=== PATIENT | male | born 1945 | race African-American/Black ===

== ENCOUNTER 2019-03-21 15:59 | Inpatient (IN) | payer MEDICARE, MEDICAID ==
[~2019-03-21] VITALS: Ht 165.1 cm; Wt 66.7 kg
[2019-03-21 18:47] LABS: BASOPHILS % 0.8 % (0.0-2.0); EOSINOPHILS % 2.4 % (0.0-5.0); HEMATOCRIT. 33.6 % (42.0-52.0); HEMOGLOBIN. 11.3 g/dL (14.0-18.0); LYMPHOCYTES % 24.5 % (20.0-50.0); MEAN CORPUSCULAR HEMOGLOBIN 29.3 pg (28.0-32.0); MEAN PLATELET VOLUME 10.2 fl (7.4-10.4); MONOCYTES % 5.8 % (2.0-8.0); NEUTROPHILS % 66.5 % (40.0-76.0); PLATELET 217 x1000/uL (130-400); RED BLOOD CELL COUNT 3.86 mill/uL (4.7-6.1)
[2019-03-21 18:52] LABS: CHLORIDE 112 mEq/L (98-107)
[2019-03-21] MEDS ORDERED: IOHEXOL-300 100 ML BOTTLE ONE (21:26)
[2019-03-22] VITALS (7 sets, daily range): BP systolic 112–168; BP diastolic 67–92
[2019-03-22] MEDS ORDERED: HYDROCODONE/ACETAMINOPHEN 5/325MG TABLET PO PRN (01:15)
[2019-03-22] MEDS ORDERED: DEXTROSE 50% WATER 50ML SYRINGE IV PRN (01:15)
[2019-03-22] MEDS ORDERED: SODIUM CHLORIDE 0.9% 1,000 ML IV SCH (02:00)
[2019-03-22] MEDS: CLONIDINE 0.1MG TABLET PO PRN (02:57)
[2019-03-22] MEDS ORDERED: DILT120T2 PO (06:23)
[2019-03-22] MEDS ORDERED: ASPI-1497 MT (06:23)
[2019-03-22] MEDS ORDERED: ALLO100T MT (06:23)
[2019-03-22] MEDS ORDERED: HYDR-4134 MT (06:23)
[2019-03-22] MEDS ORDERED: LOPE1LIQ42 PO (06:23)
[2019-03-22] MEDS ORDERED: LEVO75TA7 PO (06:24)
[2019-03-22] MEDS ORDERED: SIME125C MT (06:24)
[2019-03-22] MEDS ORDERED: SIME80TA15 MT (06:26)
[2019-03-22] MEDS ORDERED: TOPUD PO (06:26)
[2019-03-22] MEDS ORDERED: OMEP20CA14 PO (06:26)
[2019-03-22] MEDS ORDERED: NA PHOS,M-B/NA PHOS,DI-BA ENEMA 118ML PR NR (07:15)
[2019-03-22] MEDS: INSULIN LISPRO 100 UNITS/ML SUBCUT SCH ×4 (07:44→21:00)
[2019-03-22 08:53] LABS: *AMPHETAMINES SCREEN URINE NEGATIVE (NEGATIVE); *BARBITURATES SCREEN URINE NEGATIVE (NEGATIVE); *BENZODIAZEPINES SCREEN URINE NEGATIVE (NEGATIVE); *COCAINE SCREEN URINE NEGATIVE (NEGATIVE); METHADONE URINE SCREEN NEGATIVE (NEGATIVE); OPIATES URINE SCREEN NEGATIVE (NEGATIVE)
[2019-03-22 08:54] LABS: CANNABINOID URINE SCREEN NEGATIVE (NEGATIVE); PHENCYCLIDINE URINE SCREEN NEGATIVE (NEGATIVE)
[2019-03-22] MEDS ORDERED: SIMETHICONE 80MG TABLET CHEW PO PRN (11:45)
[2019-03-22] MEDS: BLOOD SUGAR DIAGNOSTIC STRIP TEST SCH ×3 (12:21→21:30)
[2019-03-22] MEDS: DILTIAZEM HCL 120MG TABLET PO SCH (13:00)
[2019-03-22] MEDS: HYDRALAZINE HCL 25MG TABLET PO SCH ×2 (14:26→21:30)
[2019-03-23] VITALS: BP 137/77
[2019-03-23 04:00] VITALS: BP 139/84
[2019-03-23] MEDS: OMEPRAZOLE 20MG CAPSULE EXTENDED RELEASE PO SCH (06:31)
[2019-03-23] MEDS: LEVOTHYROXINE SODIUM 75MCG TABLET PO SCH (06:32)
[2019-03-23] MEDS: HYDRALAZINE HCL 25MG TABLET PO SCH ×3 (06:32→22:03)
[2019-03-23] MEDS: INSULIN LISPRO 100 UNITS/ML SUBCUT SCH ×4 (07:50→21:00)
[2019-03-23 08:00] VITALS: BP 143/75
[2019-03-23] MEDS: BLOOD SUGAR DIAGNOSTIC STRIP TEST SCH ×4 (08:15→20:59)
[2019-03-23] MEDS: ASPIRIN 81MG EC TABLET PO SCH (09:44)
[2019-03-23] MEDS: ALLOPURINOL 100 MG TABLET PO SCH (09:44)
[2019-03-23] MEDS: DILTIAZEM HCL 120MG TABLET PO SCH (09:45)
[2019-03-23 10:53] LABS: BASOPHILS % 0.5 % (0.0-2.0); EOSINOPHILS % 2.9 % (0.0-5.0); HEMATOCRIT. 30.6 % (42.0-52.0); HEMOGLOBIN. 10.4 g/dL (14.0-18.0); LYMPHOCYTES % 23.4 % (20.0-50.0); MEAN CORPUSCULAR HEMOGLOBIN 29.4 pg (28.0-32.0); MEAN CORPUSCULAR VOLUME 86.3 fL (80.0-94.0); MEAN PLATELET VOLUME 9.8 fl (7.4-10.4); MONOCYTES % 7.3 % (2.0-8.0); NEUTROPHILS % 65.9 % (40.0-76.0); PLATELET 174 x1000/uL (130-400); RED BLOOD CELL COUNT 3.55 mill/uL (4.7-6.1); RED CELL DISTRIBUTION WIDTH 15.1 % (11.6-14.6)
[2019-03-23 11:41] LABS: CHLORIDE 112 mEq/L (98-107)
[2019-03-23 11:46] LABS: CREATINE KINASE 104 IU/L (39-308)
[2019-03-23 11:49] LABS: CREATINE KINASE MB FRACTION 1.6 ng/mL (0.5-3.6)
[2019-03-23 11:56] LABS: LDL CHOLESTEROL 110 mg/dL (5-100)
[2019-03-23 11:58] LABS: HDL CHOLESTEROL 37 mg/dL (40-59)
[2019-03-23 12:00] VITALS: BP 137/74
[2019-03-23] MEDS ORDERED: POTASSIUM CHLORIDE 20MEQ TABLET SR PO SCH (12:00)
[2019-03-23] MEDS ORDERED: NA PHOS,M-B/NA PHOS,DI-BA ENEMA 118ML PR SCH (12:00)
[2019-03-23] MEDS: SIMETHICONE 80MG TABLET CHEW PO SCH ×2 (12:50→18:42)
[2019-03-23 16:00] VITALS: BP 107/68
[2019-03-23 20:00] VITALS: BP 140/70
[2019-03-24] VITALS: BP 137/71
[2019-03-24] MEDS: SIMETHICONE 80MG TABLET CHEW PO SCH ×5 (01:15→23:44)
[2019-03-24 04:00] VITALS: BP 144/69
[2019-03-24] MEDS: LEVOTHYROXINE SODIUM 75MCG TABLET PO SCH (06:35)
[2019-03-24] MEDS: OMEPRAZOLE 20MG CAPSULE EXTENDED RELEASE PO SCH (06:35)
[2019-03-24] MEDS: HYDRALAZINE HCL 25MG TABLET PO SCH ×3 (06:35→21:33)
[2019-03-24] MEDS: BLOOD SUGAR DIAGNOSTIC STRIP TEST SCH ×4 (06:41→21:32)
[2019-03-24] MEDS: INSULIN LISPRO 100 UNITS/ML SUBCUT SCH ×4 (06:41→21:00)
[2019-03-24 08:00] VITALS: BP 140/68
[2019-03-24] MEDS: DILTIAZEM HCL 120MG TABLET PO SCH (09:00)
[2019-03-24] MEDS: ALLOPURINOL 100 MG TABLET PO SCH (10:03)
[2019-03-24] MEDS: ASPIRIN 81MG EC TABLET PO SCH (10:03)
[2019-03-24 12:00] VITALS: BP 161/96
[2019-03-24 16:00] VITALS: BP 135/66
[2019-03-24] MEDS ORDERED: LOPERAMIDE HCL 2MG CAPSULE PO NR (17:45)
[2019-03-24] MEDS ORDERED: LOPERAMIDE 2MG/15ML UDC PO PRN (17:45)
[2019-03-24 20:00] VITALS: BP 138/69
[2019-03-24] MEDS ORDERED: LOPERAMIDE HCL 2MG CAPSULE PO PRN (22:00)
[2019-03-25] VITALS (7 sets, daily range): BP systolic 120–164; BP diastolic 68–94
[2019-03-25] MEDS: BLOOD SUGAR DIAGNOSTIC STRIP TEST SCH ×2 (06:06→12:08)
[2019-03-25] MEDS: SIMETHICONE 80MG TABLET CHEW PO SCH ×3 (06:06→18:18)
[2019-03-25] MEDS: LEVOTHYROXINE SODIUM 75MCG TABLET PO SCH (06:07)
[2019-03-25] MEDS: HYDRALAZINE HCL 25MG TABLET PO SCH ×2 (06:07→16:11)
[2019-03-25] MEDS: OMEPRAZOLE 20MG CAPSULE EXTENDED RELEASE PO SCH (06:07)
[2019-03-25] MEDS: INSULIN LISPRO 100 UNITS/ML SUBCUT SCH ×2 (06:22→12:08)
[2019-03-25] MEDS: DILTIAZEM HCL 120MG TABLET PO SCH (08:52)
[2019-03-25] MEDS: ALLOPURINOL 100 MG TABLET PO SCH (09:11)
[2019-03-25] MEDS: ASPIRIN 81MG EC TABLET PO SCH (09:11)
[2019-03-25] MEDS ORDERED: ATOR20TA65 MT (11:57)
[2019-03-25] MEDS: CLONIDINE 0.1MG TABLET PO PRN (20:03)
[2019-03-26] MEDS ORDERED: FAMOTIDINE 20MG TABLET PO SCH (09:00)
[2019-03-26 17:06] LABS: OVA & PARASITE EXAM Final report (.)
== END 2019-03-25 20:16 | DRG 392 ==
LOC: ER 15:59 → 6EST 21:56 → ENRESERV 22:22
PROVIDERS: ADMIT Internal Medicine; ATTEND Internal Medicine
DX: K52.9 Noninfective gastroenteritis and colitis, unspecified (principal); K56.41 Fecal impaction; M1A.9XX0 Chronic gout, unspecified, without tophus (tophi); I10 Essential (primary) hypertension; K21.9 Gastro-esophageal reflux disease without esophagitis; E03.9 Hypothyroidism, unspecified; E11.51 Type 2 diabetes mellitus with diabetic peripheral angiopathy without gangrene; Z79.899 Other long term (current) drug therapy; Z79.82 Long term (current) use of aspirin
CPT/HCPCS: 36415; 74177; 80048; 80053; 80061; 80305; 82550; 82553; 82962; 84443; 84484; 85025; 87177; 87209; 87493; 89055; 93970; 99285; Q9967